=== PATIENT | female | born 1945 | race Caucasian/White ===

== ENCOUNTER 2021-12-29 11:00 | Outpatient (RCR) | payer OTHER, SELFPAY | END 2022-01-20 11:16 | disposition home or self-care (01) | LOC: HO.PTCHIC 11:00 | PROVIDERS: PCP Student in an Organized Health Care Education/Training Program; Visit Provider Student in an Organized Health Care Education/Training Program | DX: M25.562 Pain in left knee (principal) | CPT/HCPCS: 97110; 97161 ==

== ENCOUNTER 2024-02-27 10:30 | Outpatient (REF) | payer OTHER, SELFPAY ==
--- NOTE | ~2024-02-27 | XR_ITS ---
EXAMINATION: XR SHOULDER, LEFT CLINICAL INFORMATION: Acute left shoulder pain COMPARISON: None available. TECHNIQUE: AP external rotation, Grashey, scapular Y, and axillary views of the left shoulder. FINDINGS: The bones are intact. No fracture or dislocation. The glenohumeral joint space is normal. There is mild elevation of the clavicle with respect to the acromion which can be seen in AC joint separation. On the axillary view, there is question of a 0.5 cm lucency within the glenoid. No abnormal soft tissue calcifications. XR/XR shoulder LT min 2V IMPRESSION: 1. Mild elevation of the clavicle with respect to the acromion which can be seen in the setting of AC joint separation. Dedicated study of the acromioclavicular joints without and with weights could be obtained for further evaluation. 2. Question of a 0.5 cm lucency within the glenoid. CT scan could be obtained for further evaluation.
== END 2024-02-27 10:31 | disposition home or self-care (01) ==
LOC: HO.XRAY 10:30
PROVIDERS: PCP Student in an Organized Health Care Education/Training Program; Visit Provider Family Medicine
DX: M25.512 Pain in left shoulder (principal)
CPT/HCPCS: 73030

== ENCOUNTER 2024-05-03 09:02 | Outpatient (REF) | payer OTHER, SELFPAY ==
[2024-05-03 15:02] LABS: Alanine Aminotransferase 64 U/L (0-31); Albumin Level 3.7 g/dL (3.5-5.0); Alkaline Phosphatase 238 U/L (39-117); Anion Gap 12 (12-20); Aspartate Amino Transferase 81 U/L (5-31); Bilirubin Direct 0.3 mg/dL (0.0-0.5); Bilirubin Total 0.8 mg/dL (0.0-1.0); Blood Urea Nitrogen 22 mg/dL (9-16); Calcium 9.3 mg/dL (8.4-10.2); Carbon Dioxide 25 mmol/L (22-29); Chloride 107 mmol/L (96-108); Cholesterol 160 mg/dL (<200); Estimated Glomerular Filt Rate > 60; Glucose Fasting 223 mg/dL (60-99); HDL Cholesterol 44 mg/dL (>40); LDL Cholesterol Calculated 94 mg/dL (<100); Potassium 4.6 mmol/L (3.3-5.1); Sodium 139 mmol/L (135-145); Total Protein 7.5 g/dL (6.5-8.0); Triglycerides 111 mg/dL (<150)
[2024-05-03 15:03] LABS: Thyroid Stimulating Hormone 0.97 uIU/mL (0.32-4.0)
== END 2024-05-03 09:03 | disposition home or self-care (01) ==
LOC: HO.CHCLDS 09:02
PROVIDERS: Visit Provider Student in an Organized Health Care Education/Training Program
DX: E11.9 Type 2 diabetes mellitus without complications (principal); I10 Essential (primary) hypertension; E03.9 Hypothyroidism, unspecified
CPT/HCPCS: 36415; 80048; 80061; 80076; 84443

== ENCOUNTER 2024-07-01 13:21 | Outpatient (REF) | payer OTHER, SELFPAY | END 2024-07-01 13:22 | disposition home or self-care (01) | LOC: HO.MRI 13:21 | PROVIDERS: PCP Student in an Organized Health Care Education/Training Program; Visit Provider Internal Medicine | DX: Z13.89 Encounter for screening for other disorder (principal) ==